=== PATIENT | male | born 1950 | race Caucasian/White ===

== ENCOUNTER 2016-05-20 05:31 | Inpatient (IN) | payer BC ==
[2016-05-20] VITALS (8 sets, daily range): BP systolic 70–162; BP diastolic 32–79; PULSE 40–101; RESP 12–18; TEMP 96–100.5; O2SAT 97–100
[~2016-05-20] VITALS: Ht 175.3 cm; Wt 79.4 kg
[2016-05-20] MEDS ORDERED: NS 1000 ML BAG IV ONE (05:45)
[2016-05-20 06:07] LABS: BILIRUBIN,URINE NEGATIVE (NEGATIVE); BLOOD, URINE NEGATIVE (NEGATIVE); CLARITY/URINE CLEAR (CLEAR); COLOR,URINE YELLOW (YELLOW); GLUCOSE,URINE NEGATIVE (NEGATIVE); KETONES,URINE NEGATIVE (NEGATIVE); LEUKOCYTE ESTERASE ,URINE NEGATIVE (NEGATIVE); NITRITE, URINE NEGATIVE (NEGATIVE); PH,URINE 5.5 (5.0-8.0); PROTEIN URINE NEGATIVE (NEGATIVE); UROBILINOGEN,URINE 0.2 (0.2-1.0)
[2016-05-20] MEDS ORDERED: ROPI0.5T PO (06:23)
[2016-05-20] MEDS ORDERED: ONDA4TAB22 PO (06:26)
[2016-05-20] MEDS ORDERED: OMEP20CA10 PO (06:26)
[2016-05-20 06:27] LABS: BASOPHILS # (AUTO) 0.2 K/uL (0.0-0.2); BASOPHILS % (AUTO) 2.2 % (0.0-2.0); EOSINOPHILS # (AUTO) 0.1 K/uL (0.0-0.4); EOSINOPHILS % (AUTO) 1.8 % (0.0-4.0); HEMATOCRIT 39.5 % (36-54); HEMOGLOBIN 13.7 g/dL (14.0-18.0); LYMPHOCYTES # (AUTO) 0.7 K/uL (1.0-5.5); LYMPHOCYTES % (AUTO) 9.4 % (20.5-51.5); MEAN CORPUSCULAR HEMOGLOBIN 33 pg (27-31); MEAN CORPUSCULAR HGB CONC 35 % (32-36); MEAN CORPUSCULAR VOLUME 95 fL (79.0-98.0); MONOCYTES # (AUTO) 0.8 K/uL (0.0-1.0); MONOCYTES % (AUTO) 11.8 % (1.7-9.3); NEUTROPHILS # (AUTO) 5.3 K/uL (1.8-7.7); NEUTROPHILS % (AUTO) 74.8 % (40.0-70.0); PLATELET COUNT (AUTO) 157 K/uL (130-430); RED BLOOD CELL COUNT(AUTO) 4.16 MIL/uL (4.2-6.2); RED CELL DISTRIBUTION WIDTH 12.4 % (9.0-15.0); WHITE BLOOD COUNT (AUTO) 7.1 K/uL (4.8-10.8)
[2016-05-20] MEDS ORDERED: LISI-600 PO (06:27)
[2016-05-20] MEDS ORDERED: LORazepam 2 MG/ML VIAL (FOR ER USE) ONE (06:41)
[2016-05-20 06:42] LABS: ANION GAP 8 (5-15); CALCIUM 8.7 mg/dL (8.4-11.0); CHLORIDE 103 mmol/L (98-107); CREATININE 1.21 mg/dL (0.55-1.30); GLUCOSE 119 mg/dL (70-99); POTASSIUM 4.1 mmol/L (3.5-5.1); SODIUM SERUM 138 mmol/L (136-145); UREA NITROGEN, BLOOD 30 mg/dL (8-21)
[2016-05-20] MEDS ORDERED: LORazepam 2 MG/ML VIAL (FOR ER USE) IVP ONE ×3 (06:45→07:00)
[2016-05-20 06:47] LABS: ALANINE AMINOTRANSFERASE 42 U/L (12-78); ALBUMIN 3.9 g/dL (3.4-4.8); ASPARTATE AMINOTRANSFERASE 18 U/L (10-37); CREATINE KINASE, TOTAL 89 U/L (39-308); SALICYLATE 1 mg/dL (3-30); TOTAL BILIRUBIN 0.8 mg/dL (0.0-1.0); TOTAL PROTEIN, SERUM 6.9 g/dL (6.4-8.3)
[2016-05-20 06:52] LABS: GFR AFRICAN AMERICAN 77 mL/min (>90)
[2016-05-20 06:53] LABS: ALCOHOL, BLOOD < 3 mg/dL (<10)
[2016-05-20] MEDS ORDERED: PHENYTOIN SODIUM INJ 1,000 MG in NS 100 ML IV ONE (07:00)
[2016-05-20 07:23] LABS: ACETAMINOPHEN 4 ug/mL (1-30)
[2016-05-20] MEDS ORDERED: levETIRAcetam 500 MG TABLET PO ONE (07:30)
[2016-05-20] MEDS ORDERED: levETIRAcetam 500 MG IV PREMIX 100 ML IV ONE (07:45)
[2016-05-20] MEDS: D5NS 1,000 ML IV SCH (12:40)
[2016-05-20 12:48] LABS: BARBITURATE, URINE NEGATIVE (NEG <=200); BENZODIAZEPINE, URINE NEGATIVE (NEG <=150); CANNABINOID, URINE NEGATIVE (NEG <=50); COCAINE, URINE NEGATIVE (NEG <=150); METHAMPHETAMINES SCREEN,URINE NEGATIVE (NEG <=500); PHENCYCLIDINE SCREEN,URINE NEGATIVE (NEG <=25); URINE AMPHETAMINE NEGATIVE (NEG <=500); URINE METHADONE NEGATIVE (NEG <=200)
[2016-05-20 12:49] LABS: OPIATE, URINE NEGATIVE (NEG <=100); UR TRICYCLIC ANTIDEPRESSANTS NEGATIVE (NEG <=300); URINE OXYCODONE SCREEN NEGATIVE (NEG <=100); URINE PROPOXYPHENE SCREEN NEGATIVE (NEG <=300)
[2016-05-20] MEDS ORDERED: levETIRAcetam 500 MG in NS 100 ML IV SCH (21:00)
[2016-05-20] MEDS ORDERED: ONDANSETRON 4 MG ODT TAB PO PRN (22:15)
[2016-05-20] MEDS ORDERED: LORazepam 2 MG/ML VIAL IVP PRN (22:15)
[2016-05-20] MEDS: ACETAMINOPHEN 650 MG/20.3 ML UDC PO PRN (22:33)
[2016-05-20] MEDS: levETIRAcetam 500 MG TABLET PO SCH (22:34)
[2016-05-20] MEDS ORDERED: LISINOPRIL 20 MG TABLET PO ONE (23:00)
[2016-05-20] MEDS ORDERED: roPINIRole HCL 0.25 MG ( REQUIP )TABLET PO ONE (23:00)
[2016-05-20] MEDS ORDERED: OMEPRAZOLE 20 MG CAPSULE.DR (PriLOSEC) PO ONE (23:00)
[2016-05-21] MEDS: D5NS 1,000 ML IV SCH ×3 (02:10→16:04)
[2016-05-21 04:00] VITALS: BP 140/82; PULSE 83; RESP 18; TEMP 99.1; O2SAT 96
[2016-05-21 08:33] VITALS: BP 162/71; PULSE 91; RESP 18; TEMP 98.1; O2SAT 97
[2016-05-21] MEDS: roPINIRole HCL 0.25 MG ( REQUIP )TABLET PO SCH ×2 (10:02→20:46)
[2016-05-21] MEDS: levETIRAcetam 500 MG TABLET PO SCH ×2 (10:02→20:45)
[2016-05-21 11:54] VITALS: BP 136/75; PULSE 87; RESP 17; TEMP 99; O2SAT 95
[2016-05-21 15:34] VITALS: BP 134/63; PULSE 84; RESP 16; TEMP 96.3; O2SAT 94
[2016-05-21] MEDS ORDERED: LISINOPRIL 20 MG TABLET PO SCH (18:00)
[2016-05-21] MEDS ORDERED: OMEPRAZOLE 20 MG CAPSULE.DR (PriLOSEC) PO SCH (18:00)
[2016-05-21] MEDS ORDERED: IOHEXOL 100 ML IV ONE (18:05)
[2016-05-21 20:00] VITALS: BP 154/82; PULSE 83; RESP 18; TEMP 97.8; O2SAT 95
[2016-05-21] MEDS: ACETAMINOPHEN 650 MG/20.3 ML UDC PO PRN (20:44)
[2016-05-22] VITALS: BP 138/69; PULSE 75; RESP 18; TEMP 97.4; O2SAT 95
[2016-05-22] MEDS: D5NS 1,000 ML IV SCH (00:06)
[2016-05-22 03:55] VITALS: BP 136/66; PULSE 67; RESP 17; TEMP 97.9; O2SAT 96
[2016-05-22 08:03] VITALS: BP 139/81; PULSE 66; RESP 20; TEMP 98.3; O2SAT 97
[2016-05-22] MEDS: levETIRAcetam 500 MG TABLET PO SCH (08:34)
[2016-05-22] MEDS: roPINIRole HCL 0.25 MG ( REQUIP )TABLET PO SCH (08:35)
[2016-05-22 08:55] VITALS: BP 155/84; PULSE 74; RESP 17; TEMP 97.9; O2SAT 97
[2016-05-22 12:14] VITALS: BP 155/84; PULSE 74; RESP 17; TEMP 97.9; O2SAT 97
[2016-05-22] MEDS ORDERED: LEVE1000 PO (14:00)
[2016-05-22] MEDS ORDERED: Z-PACK (14:01)
== END 2016-05-22 15:00 | disposition home or self-care (01) | DRG 101 ==
LOC: SED 05:31 → STU 07:26
PROVIDERS: ADMIT Internal Medicine Hospice and Palliative Medicine; ATTEND Internal Medicine Hospice and Palliative Medicine
DX: G40.89 Other seizures (principal); I10 Essential (primary) hypertension; E11.9 Type 2 diabetes mellitus without complications; E86.0 Dehydration; G25.81 Restless legs syndrome; W19.XXXA Unspecified fall, initial encounter; Y92.002 Bathroom of unspecified non-institutional (private) residence as the place of occurrence of the external cause; Y93.89 Activity, other specified; Z95.0 Presence of cardiac pacemaker; Z88.0 Allergy status to penicillin; Z91.040 Latex allergy status; Y99.8 Other external cause status
CPT/HCPCS: 36415; 70450-TC; 70470-TC; 71010; 80053; 80307; 81003; 82550-TC; 83605; 83874; 84484; 85025; 85610-TC; 85730-TC; 93005; 93306; 93880; 95816; 96361; 96365; 96375; 99285; G0480; G0481; G0482; J1165; J1953; J2060; J7030; J7042; Q9967